=== PATIENT | male | born 1950 | race Caucasian/White ===

== ENCOUNTER 2016-12-26 17:22 | Emergency (ER) | payer OTHER ==
[~2016-12-26] VITALS: Ht 177.8 cm; Wt 91.5 kg
[~2016-12-26 17:22] MED LIST: ALBU1AER INH; ASPI81TA82 PO; ATOR40TA PO; HYDR-3533 PO; LOTR5CAP3 PO; MEDR4PAK3 PO; MONT10TA2 PO; SYMB160A INH; VITA100017 PO; ZIAC5TAB PO; ZOFR4TAB3 SL
[2016-12-26 18:03] VITALS: BP 108/55; PULSE 78; RESP 16; TEMP 98.8; O2SAT 96
== END 2016-12-26 21:25 | disposition left against medical advice (07) ==
LOC: PHED 17:22
DX: R42 Dizziness and giddiness (principal)
CPT/HCPCS: 99281

== ENCOUNTER 2016-12-30 14:06 | Inpatient (IN) | payer OTHER, MEDICARE ==
[2016-12-30] VITALS (8 sets, daily range): BP systolic 93–144; BP diastolic 61–96; PULSE 88–100; RESP 14–20; TEMP 97.8–98.6; O2SAT 96–97
[~2016-12-30] VITALS: Ht 177.8 cm; Wt 97.9 kg
[2016-12-30] MEDS ORDERED: LISI40TA PO (14:25)
[2016-12-30] MEDS ORDERED: CHLOR50 PO (14:25)
[2016-12-30] MEDS ORDERED: SYMB80AE INH (14:25)
[2016-12-30] MEDS ORDERED: MONT10TA2 PO (14:25)
[2016-12-30] MEDS ORDERED: SODIUM CHLOR 0.9% 1000 ML INJ 1,000 ML IV SCH (14:56)
[2016-12-30] MEDS ORDERED: SODIUM CHLORIDE 0.9% FLUSH 10 ML FLUSH IV FLUSH PRN ×2 (15:00→18:45)
[2016-12-30 15:21] LABS: BASOPHIL # 0.1 TH/MM3 (0-0.2); BASOPHIL % 0.7 % (0.0-2.0); EOSINOPHIL # 0.1 TH/MM3 (0-0.4); EOSINOPHIL % 1.1 % (0.0-4.0); MEAN CELL VOLUME 62.5 FL (80.0-100.0); MEAN CORPUSCULAR HEMOGLOBIN 19.9 PG (27.0-34.0); MEAN CORPUSCULAR HGB CONC 31.9 % (32.0-36.0); MONO % 7.1 % (0.0-8.0); NEUT % 81.1 % (16.0-70.0); PLATELET COUNT 254 TH/MM3 (150-450); RED BLOOD COUNT 5.45 MIL/MM3 (4.50-5.90); RED CELL DISTRIBUTION WIDTH 15.9 % (11.6-17.2); WHITE BLOOD COUNT 9.9 TH/MM3 (4.0-11.0)
[2016-12-30 15:27] LABS: CHLORIDE 92 MEQ/L (98-107); SODIUM (NA) 130 MEQ/L (136-145)
[2016-12-30 15:29] LABS: HEMO FLAGS AUTO DIFF
[2016-12-30 15:30] LABS: ANION GAP 10 MEQ/L (5-15); BICARBONATE 28.3 MEQ/L (21.0-32.0)
[2016-12-30 15:31] LABS: BLOOD UREA NITROGEN 23 MG/DL (7-18)
[2016-12-30 15:33] LABS: ALT (GPT) 88 U/L (12-78); AST (GOT) 87 U/L (15-37)
[2016-12-30 15:34] LABS: GLOMERULAR FILTRATION RATE 43 ML/MIN (>89)
[2016-12-30 15:35] LABS: TOTAL BILIRUBIN ADULT 0.4 MG/DL (0.2-1.0)
[2016-12-30 15:36] LABS: ALKALINE PHOSPHATASE 65 U/L (45-117)
[2016-12-30] MEDS ORDERED: SODIUM CHLOR 0.9% 1000 ML INJ 1,000 ML IV ONE (15:45)
--- NOTE | 2016-12-30 16:01 | RADRPT ---
EXAM DATE/TIME: 12/30/2016 15:02 [facility] COMPARISON: RIBS RIGHT(W PA CXR MIN 3VWS), June 04, 2015, 1:35. INDICATIONS : Cough. MEDICAL HISTORY : Hypertension. Asthma SURGICAL HISTORY : None. ENCOUNTER: Initial ACUITY: 1 day PAIN SCORE: 4/10 LOCATION: Bilateral chest FINDINGS: Single view chest demonstrates the cardiac and mediastinal contours to be within normal limits. There is an area of linear atelectasis at the left lung base. The osseous structures are intact. CONCLUSION: 1. Small area of atelectasis at the left lung base. Twan Brumfield MD on December 30, 2016 at 15:58 Board Certified Radiologist. This report was verified electronically.
[2016-12-30 16:07] LABS: KERATOCYTES 1+ (NORMAL); OVALOCYTES 3+ (NORMAL); TARGET CELLS 1+ (NORMAL)
[2016-12-30 16:08] LABS: SCAN/DIFF AUTO DIFF CONFIRMED; TEARDROP RBCS 1+ (NORMAL)
[2016-12-30 16:12] LABS: BLOOD, URINE NEG (NEG); GLUCOSE,URINE NEG (NEG); KETONE, URINE TRACE mg/dL (NEG); NITRITE,URINE NEG (NEG); PH, URINE 6.5 (5.0-8.5)
[2016-12-30 16:46] LABS: URINE COLOR YELLOW (YELLW/STRAW)
[2016-12-30 16:47] LABS: COMMENT (UR) CULT NOT INDICATED; CULTURE IF INDICATED CULT NOT INDICATED; MUCUS URINE MOD /lpf (OCC); RBC, URINE 0-3 /hpf (0-3); SQUAMOUS EPITHELIAL CELL URINE 0-5 /hpf (0-5)
--- NOTE | 2016-12-30 16:48 | RADRPT ---
EXAM DATE/TIME: 12/30/2016 16:36 [facility] COMPARISON: No previous studies available for comparison. INDICATIONS : Abdominal cramping, nausea and constipation x 3 days. Low blood pressure. ORAL CONTRAST: No oral contrast ingested. RADIATION DOSE: 18.46 CTDIvol (mGy) MEDICAL HISTORY : Chronic obstructive pulmonary disease. Hypertension. SURGICAL HISTORY : None. ENCOUNTER: Initial ACUITY: 3 days PAIN SCALE: 6/10 LOCATION: Diffuse abdomen. TECHNIQUE: Volumetric scanning of the abdomen and pelvis was performed. Using automated exposure control and ad justment of the mA and/or kV according to patient size, radiation dose was kept as low as reasonably achievable to obtain optimal diagnostic quality images. DICOM format image data is available electro nically for review and comparison. FINDINGS: LOWER LUNGS: The visualized lower lungs are clear. LIVER: Homogeneous density without lesion. There is no dilation of the biliary tree. No calcified gallston es. SPLEEN: Normal size without lesion. PANCREAS: Within normal limits. KIDNEYS: Normal in size and shape. There is no mass, stone, or hydronephrosis. ADRENAL GLANDS: Minimal nodularity is present about both adrenals and they 1.8 CM nodule on the right, low-density pr obably adenoma VASCULAR: Moderate vascular calcifications are noted. BOWEL/MESENTERY: The stomach, small bowel, and colon demonstrate no acute abnormality. There is no free intraperitone al air or fluid. ABDOMINAL WALL: Within normal limits. RETROPERITONEUM: There is no lymphadenopathy. BLADDER: No wall thickening or mass. REPRODUCTIVE: Previous patient therapy prostate INGUINAL: There is no lymphadenopathy or hernia. MUSCULOSKELETAL: Degenerative changes of lumbar spinal stenosis L4-5-L5-S1. CONCLUSION: Negative for an acute process Bilateral adrenal nodules larger on the right Extensive gastric calcifications I don't see an abscess. Osei Brumfield MD FACR on December 30, 2016 at 16:44 Board Certified Radiologist. This report was verified electronically.
--- NOTE | 2016-12-30 16:56 | PD ---
HPI Chief Complaint: Dizziness Time Seen by Provider: 14:23 Travel History International Travel<30 days: No Contact w/Intl Traveler<30days: No Traveled to known affect area: No History of Present Illness HPI 66-year-old male came to the emergency room for some lightheadedness, left- sided chest pain and hypotension. Patient says that he had gone to [place] as to visit his brother after which he started feeling weak. He came back couple days later amended see his primary care. It was noticed that his blood pressure was running low. Patient says that his appetite has been down and he has lost 7-8 pounds in one week. No history of shortness of breath but this chest pain is on the left lower side which is worse on taking a deep breath. He says he just feels tired all the time. No history of nausea vomiting. No radiation of the pain. Blood pressure in triage was 93/55. Patient says his blood pressure usually is in 130s and that is after taking 2 blood pressure medications. His primary care to come off one of the blood pressure medicine. This morning when he woke up he was hungry but by the time he made a to breakfast his appetite was gone. Has been he decided to come to the ER. No history of fever or chills. He has a slight cough. [facility] Past Medical History Narrative Medical History of his past medical, surgical, social and family history is reviewed from the nursing note. Asthma: Yes High Cholesterol: Yes COPD: Yes Diminished Hearing: No Hypertension: Yes Immunizations Current: No Pneumonia: Yes Influenza Vaccination: Yes ?: Not Past Surgical History Eye Surgery: Yes (RIGHT CATARACT) Tonsillectomy: Yes Family History Family Hypercholesterolemia: Yes (FATHER) Social History Alcohol Use: Yes ([facility]) Tobacco Use: No (QUIT 2007) Substance Use: No Allergies-Medications (Allergen,Severity, Reaction): Coded Allergies: penicillin G (Unverified Allergy, Severe, Anaphylaxis, 12/30/16) Comments List of his allergies are noted from the nursing note. Reported Meds & Prescriptions Reported Meds & Active Scripts Active Reported Symbicort Inh (Budesonide/Formoterol Fumarate) 80-4.5 Mcg/Act Aero 2 Puff INH DAILY@0600 Singulair (Montelukast Sodium) 10 Mg Tab 10 Mg PO HS Chlorthalidone 50 Mg Tab 50 Mg PO DAILY Lisinopril 40 Mg Tab 40 Mg PO DAILY Narrative Medication List of his home medications reviewed from the nursing note. Review of Systems Except as stated in HPI: all other systems reviewed are Neg Physical Exam Narrative GENERAL: Awake, alert, moderate distress, anxious SKIN: Focused skin assessment warm/dry. HEAD: Atraumatic. Normocephalic. EYES: Pupils equal and round. No scleral icterus. No injection or drainage. ENT: No nasal bleeding or discharge. Dry lips and mucous membranes NECK: Trachea midline. No JVD. CARDIOVASCULAR: Regular rate and rhythm. No murmur appreciated. RESPIRATORY: No accessory muscle use. Clear to auscultation. Breath sounds equal bilaterally. GASTROINTESTINAL: Abdomen soft, non-tender, nondistended. Hepatic and splenic margins not palpable. MUSCULOSKELETAL: No obvious deformities. No clubbing. No cyanosis. No edema. NEUROLOGICAL: Awake and alert. No obvious cranial nerve deficits. Motor grossly within normal limits. Normal speech. PSYCHIATRIC: Appropriate mood and affect; insight and judgment normal. Data Data Last Documented VS Vital Signs Date Time Temp Pulse Resp B/P (MAP) Pulse Ox O2 Delivery O2 Flow Rate FiO2 12/30/16 17:55 89 18 135/96 (109) 96 Room Air 12/30/16 14:07 97.8 Orders Orders Complete Blood Count With Diff (12/30/16 14:56) Comprehensive Metabolic Panel (12/30/16 14:56) Lipase (12/30/16 14:56) Urinalysis - C+S If Indicated (12/30/16 14:56) Ct Abd/Pel W/O Iv Contrast (12/30/16 14:56) Iv Access Insert/Monitor (12/30/16 14:56) Ecg Monitoring (12/30/16 14:56) Oximetry (12/30/16 14:56) Sodium Chlor 0.9% 1000 Ml Inj (Ns 1000 M (12/30/16 14:56) Sodium Chloride 0.9% Flush (Ns Flush) (12/30/16 15:00) Electrocardiogram (12/30/16 14:56) Chest, Single Ap (12/30/16 ) Sodium Chlor 0.9% 1000 Ml Inj (Ns 1000 M (12/30/16 15:45) Troponin I (12/30/16 17:00) Iron/Tibc Profile (12/30/16 17:02) Transferrin (12/30/16 17:02) Ct Pulmonary Angiogram (12/30/16 ) Iohexol 350 Inj (Omnipaque 350 Inj) (12/30/16 18:15) Admit To Inpatient (12/30/16 ) Vital Signs (Adult) Q4H (12/30/16 18:34) Activity Bed Rest With Brp (12/30/16 18:34) Sodium Chlor 0.9% 1000 Ml Inj (Ns 1000 M (12/30/16 18:34) Sodium Chloride 0.9% Flush (Ns Flush) (12/30/16 18:45) Sodium Chloride 0.9% Flush (Ns Flush) (12/30/16 21:00) Acetaminophen (Tylenol) (12/30/16 18:45) Ondansetron Inj (Zofran Inj) (12/30/16 18:45) Comprehensive Metabolic Panel (12/31/16 06:00) Complete Blood Count With Diff (12/31/16 06:00) Resp Oxygen David C Titrat 1-4 L (12/30/16 ) Naloxone Inj (Narcan Inj) (12/30/16 18:45) Admit Order (Ed Use Only) (12/30/16 18:55) Labs Laboratory Tests Test 12/30/16 15:11 12/30/16 15:55 White Blood Count 9.9 TH/MM3 Red Blood Count 5.45 MIL/MM3 Hemoglobin 10.9 GM/DL Hematocrit 34.0 % Mean Corpuscular Volume 62.5 FL Mean Corpuscular Hemoglobin 19.9 PG Mean Corpuscular Hemoglobin Concent 31.9 % Red Cell Distribution Width 15.9 % Platelet Count 254 TH/MM3 Mean Platelet Volume 8.0 FL Neutrophils (%) (Auto) 81.1 % Lymphocytes (%) (Auto) 10.0 % Monocytes (%) (Auto) 7.1 % Eosinophils (%) (Auto) 1.1 % Basophils (%) (Auto) 0.7 % Neutrophils # (Auto) 8.0 TH/MM3 Lymphocytes # (Auto) 1.0 TH/MM3 Monocytes # (Auto) 0.7 TH/MM3 Eosinophils # (Auto) 0.1 TH/MM3 Basophils # (Auto) 0.1 TH/MM3 CBC Comment AUTO DIFF Differential Comment AUTO DIFF CONFIRMED Target Cells 1+ Tear Drop Cells 1+ Ovalocytes 3+ Keratocytes 1+ Blood Urea Nitrogen 23 MG/DL Creatinine 1.60 MG/DL Random Glucose 99 MG/DL Total Protein 7.5 GM/DL Albumin 3.4 GM/DL Calcium Level 9.1 MG/DL Alkaline Phosphatase 65 U/L Aspartate Amino Transf (AST/SGOT) 87 U/L Alanine Aminotransferase (ALT/SGPT) 88 U/L Total Bilirubin 0.4 MG/DL Sodium Level 130 MEQ/L Potassium Level 4.0 MEQ/L Chloride Level 92 MEQ/L Carbon Dioxide Level 28.3 MEQ/L Anion Gap 10 MEQ/L Estimat Glomerular Filtration Rate 43 ML/MIN Iron Level 41 MCG/DL Total Iron Binding Capacity 340 MCG/DL Percent Iron Saturation 12.1 % Transferrin 243 MG/DL Troponin I LESS THAN 0.02 NG/ML Lipase 136 U/L Urine Color YELLOW Urine Turbidity CLEAR Urine pH 6.5 Urine Specific [place] 1.021 Urine Protein TRACE mg/dL Urine Glucose (UA) NEG mg/dL Urine Ketones TRACE mg/dL Urine Occult Blood NEG Urine Nitrite NEG Urine Bilirubin NEG Urine Leukocyte Esterase NEG Urine RBC 0-3 /hpf Urine WBC 3-5 /hpf Urine Squamous Epithelial Cells 0-5 /hpf Urine Amorphous Sediment FEW Urine Mucus MOD /lpf Microscopic Urinalysis Comment CULT NOT INDICATED MDM Medical Decision Making Medical Screen Exam Complete: Yes Emergency Medical Condition: Yes Medical Record Reviewed: Yes Interpretation(s) Twelve-lead EKG was reviewed by me. Normal sinus rhythm, normal axis, nonspecific ST-T wave changes, PVCs. Heart rate of 98 bpm. Differential Diagnosis Pneumonia, dehydration, electrolyte imbalance, PE, ACS, non-STEMI Narrative Course 5:52 PM blood test results are back and patient is anemic with hemolytic cells. Patient confirmed that he has history of thalassemia and he thinks it's thalassemia minor. Chemistry is suggestive of slight elevation of AST and ALTs. Troponin is negative. Initially I had ordered a CT scan of his abdomen and pelvis which was negative any acute issues. BUN/creatinine is elevated suggesting dehydration. I've given him 2 L of IV fluid bolus. I've ordered a CT pulmonary angiogram at this point to rule out PE. If that's negative patient will be admitted for rule out ACS. Also given the thalassemia and elevated LFTs I have added transferrin and serum iron level along with serum iron and TIBC ratio. My concern is iron overload. These tests will be run at the main hospital and will take a little bit time. Patient will need to be admitted for observation at least a rule out ACS. I reassessed him after the 2 L of IV fluid bolus and he says he still feels "blah". 6:[address] pulmonary angiogram report is back and patient does not have PE. Troponin was within acceptable limit. Awaiting for the hospitalist to call back for admission. Procedures EKG Prior to Arrival: No Diagnosis Primary Impression: Chest pain Qualified Codes: R07.9 - Chest pain, unspecified Additional Impressions: Thalassemia minor Dehydration Admitting Information Admitting Physician Requests: Observation Scripts Methylprednisolone Dosepak (Medrol Dosepak) 4 Mg Dspk 4 MG PO DIRECTED, #1 DSPK 0 Refills Per Pharmacist direction Prov: Shelly Patrick MD 01/01/17 Azithromycin (Azithromycin) 250 Mg Tab 500 MG PO DAILY for COPD for 3 Days, #6 TAB Prov: Shelly Patrick MD 01/01/17 Reshma Sebastian MD Dec 30, 2016 16:56
[2016-12-30] MEDS ORDERED: IOHEXOL 350 MG/ML 10 ML VIAL (for RAD DIAG) IVCONTRAST ONE (18:15)
--- NOTE | 2016-12-30 18:22 | RADRPT ---
EXAM DATE/TIME: 12/30/2016 18:06 [facility] COMPARISON: CT ABDOMEN & PELVIS W/O CONTRAST, December 30, 2016, 16:36. INDICATIONS : Left chest pain, hypotension, lightheaded and cough. IV CONTRAST: 75 cc Omnipaque 350 (iohexol) IV RADIATION DOSE: 18.45 CTDIvol (mGy) MEDICAL HISTORY : Hypertension. Chronic obstructive pulmonary disease. SURGICAL HISTORY : None. ENCOUNTER: Initial ACUITY: 3 days PAIN SCALE: 4/10 LOCATION: Left chest TECHNIQUE: Volumetric scanning of the chest was performed using a pulmonary embolism protocol MIP images were re constructed. Using automated exposure control and adjustment of the mA and/or kV according to patien t size, radiation dose was kept as low as reasonably achievable to obtain optimal diagnostic quality images. DICOM format image data is available electronically for review and comparison. Follow-up recommendations for detected pulmonary nodules are based at a minimum on nodule size and pa tient risk factors according to Fleischner Society Guidelines. FINDINGS: The examination is of good diagnostic quality. No pulmonary embolus is identified. The heart is normal in size. There is no pericardial effusion. There is mild atherosclerotic plaquing of the coronary arteries. The pulmonary parenchyma demonstrates mild COPD changes but is otherwise clear. No pleural effusion i s present. The limited portions of upper abdomen visualized demonstrate small bilateral adrenal masses. The lesi on on the right measures 1.8 cm. This measures only 3 Hounsfield units on the prior noncontrast imagi ng and would be consistent with benign adenoma. The lesion on the left measures -10 Hounsfield units which is consistent with benign adenoma as well. CONCLUSION: 1. No pulmonary embolus identified. 2. Bilateral benign adrenal adenomas. 3. Mild COPD changes. Twan Brumfield MD on December 30, 2016 at 18:19 Board Certified Radiologist. This report was verified electronically.
[2016-12-30] MEDS ORDERED: ONDANSETRON HCL 4 MG/2 ML VIAL IVP PRN (18:45)
[2016-12-30] MEDS ORDERED: NALOXONE HCL 0.4 MG/ML AMP IV PUSH PRN (18:45)
[2016-12-30] MEDS: SODIUM CHLOR 0.9% 1000 ML INJ 1,000 ML IV SCH (18:48)
[2016-12-30 18:54] LABS: TRANSFERRIN 243 MG/DL (200-360); TRANSFERRIN IRON PROFILE 243 MG/DL (200-360)
[2016-12-30] MEDS: SODIUM CHLORIDE 0.9% FLUSH 10 ML FLUSH IV FLUSH SCH (21:58)
[2016-12-30] MEDS: ACETAMINOPHEN 325 MG TAB PO PRN (22:01)
[2016-12-31] VITALS (11 sets, daily range): BP systolic 124–159; BP diastolic 69–104; PULSE 70–102; RESP 15–22; TEMP 96.4–98.9; O2SAT 94–99
[2016-12-31] MEDS: ACETAMINOPHEN 325 MG TAB PO PRN (03:46)
[2016-12-31] MEDS: SODIUM CHLOR 0.9% 1000 ML INJ 1,000 ML IV SCH ×2 (04:34→05:17)
--- NOTE | 2016-12-31 06:08 | EKG ---
Date Performed: 12/30/2016 Time Performed: 15:05:31 PTAGE: 66 years EKG: Sinus rhythm WITH OCCASIONAL SUPRAVENTRICULAR PREMATURE COMPLEXES BORDERLINE ECG NO PREVIOUS TRACING DOCTOR: Kayden Ashley Interpretating Date/Time 12/31/2016 06:05:59
[2016-12-31 07:15] LABS: CHLORIDE 99 MEQ/L (98-107); POTASSIUM 3.7 MEQ/L (3.5-5.1); SODIUM (NA) 135 MEQ/L (136-145)
[2016-12-31 07:19] LABS: ANION GAP 9 MEQ/L (5-15); BICARBONATE 26.9 MEQ/L (21.0-32.0); BLOOD UREA NITROGEN 16 MG/DL (7-18)
[2016-12-31 07:22] LABS: ALT (GPT) 104 U/L (12-78); AST (GOT) 89 U/L (15-37); GLOMERULAR FILTRATION RATE 80 ML/MIN (>89)
[2016-12-31 07:24] LABS: ALKALINE PHOSPHATASE 65 U/L (45-117); TOTAL BILIRUBIN ADULT 0.5 MG/DL (0.2-1.0)
[2016-12-31 07:25] LABS: AUTOMATED NEUTROPHIL # 11.6 TH/MM3 (1.8-7.7); BASOPHIL % 0.2 % (0.0-2.0); EOSINOPHIL # 0.1 TH/MM3 (0-0.4); EOSINOPHIL % 0.9 % (0.0-4.0); HEMATOCRIT 34.2 % (39.0-51.0); LYMPH % 7.2 % (9.0-44.0); MEAN CELL VOLUME 63.9 FL (80.0-100.0); MEAN CORPUSCULAR HEMOGLOBIN 19.9 PG (27.0-34.0); MEAN CORPUSCULAR HGB CONC 31.1 % (32.0-36.0); MONO % 7.3 % (0.0-8.0); NEUT % 84.4 % (16.0-70.0); PLATELET COUNT 227 TH/MM3 (150-450); RED BLOOD COUNT 5.35 MIL/MM3 (4.50-5.90); RED CELL DISTRIBUTION WIDTH 16.5 % (11.6-17.2); WHITE BLOOD COUNT 13.7 TH/MM3 (4.0-11.0)
[2016-12-31 07:26] LABS: HEMO FLAGS AUTO DIFF
[2016-12-31 08:03] LABS: SCAN/DIFF AUTO DIFF CONFIRMED
[2016-12-31] MEDS ORDERED: guaiFENesin/DEXTROMETHORPHAN 200 MG/20 MG/10 ML CUP PO PRN (08:15)
[2016-12-31] MEDS ORDERED: PNEUMOCOCCAL POLYVALENT INJ 25 MCG/0.5 ML SYR IM ONE (09:00)
[2016-12-31] MEDS: SODIUM CHLORIDE 0.9% FLUSH 10 ML FLUSH IV FLUSH SCH ×2 (09:00→22:00)
--- NOTE | 2016-12-31 09:05 | EKG ---
Date Performed: 12/31/2016 Time Performed: 08:34:47 PTAGE: 66 years EKG: Baseline artifact present Sinus rhythm NORMAL ECG Compared to prior electrocardiogram, PACs no longer present. PREVIOUS TRACING : 12/30/2016 15.05 DOCTOR: Kayden Ashley Interpretating Date/Time 12/31/2016 09:03:56
[2016-12-31 10:03] LABS: CREATINE KINASE 64 U/L (39-308)
[2016-12-31] MEDS ORDERED: methylPREDNISolone SOD SUCC 125 MG/2 ML VIAL IV PUSH ONE (14:30)
[2016-12-31] MEDS ORDERED: RESP: ALBUTEROL 2.5 MG/IPRATROPIUM 0.5 MG NEB (PRN) NEB (14:30)
[2016-12-31] MEDS: RESP: ALBUTEROL 2.5 MG/IPRATROPIUM 0.5 MG NEB (SCH) NEB ×3 (15:33→23:17)
[2016-12-31] MEDS: guaiFENesin/CODEINE SYRUP 200 MG/20 MG/10 ML CUP PO PRN (16:03)
[2016-12-31] MEDS: AZITHROMYCIN 250 MG TAB PO SCH (16:03)
--- NOTE | 2016-12-31 16:53 | HHI.HP ---
HPI Service [facility] Hospitalists Primary Care Physician Dieudonne Ramos, DO Admission Diagnosis chest pain, thalassemia minor, dehydration Diagnoses: (1) Leukocytosis Diagnosis: Principal (2) Bronchitis Diagnosis: Principal (3) COPD (chronic obstructive pulmonary disease) Diagnosis: Principal (4) Shortness of breath Diagnosis: Principal (5) Hyponatremia Diagnosis: Principal Chief Complaint: Cough, shortness of breath Travel History International Travel<30 Days: No Contact w/Intl Traveler <30 Da: No Traveled to Known Affected Are: No Sepsis Criteria SIRS Criteria (2 or more): Heart rate over 90, WBC > 85258, < 4000 or > 10% bands Sepsis Criteria (SIRS+source): Infect source susp/known History of Present Illness Written by Gary Sheldon, acting as scribe for Dr. Patrick on 12/31/16 at 16 :43. 66-year-old male with known history of hypertension, chronic obstructive pulmonary disease, hyperlipidemia, recurrent bronchitis, thalassemia who presented to hospital because of being ill for the last week. Patient states that when he got back from [place], he started having worsening symptoms, not feeling well well, nausea with no vomiting, 9 pound weight loss, significant cough with minimal production, chest congestion, rib pain from the coughing. Because he did not get any better he came to emergency department for evaluation. Patient states that he gets this illness frequently and he usually gets prescribed an antibiotic, steroid pack and he gets better. He does have a nebulizer at home however he does not use it that frequently. Patient was admitted for further evaluation. Patient did have cardiac enzymes performed which did rule out any acute coronary event. Patient still with significant chest congestion, wheezing, cough. Cough medicine that was prescribed is not working that well at this time. Patient denies any fever, chills, abdominal pain, vomiting, patient does have some nausea, however he was able to eat some toast this morning. Review of Systems Constitutional: COMPLAINS OF: Weight loss Respiratory: COMPLAINS OF: Cough, Shortness of breath Gastrointestinal: COMPLAINS OF: Nausea Except as stated in HPI: all other systems reviewed are Neg Past Family Social History Past Medical History Hypertension Hyperlipidemia Chronic obstructive pulmonary disease Thalassemia Recurrent bronchitis Past Surgical History Cataract surgery Tonsillectomy Reported Medications Reported Meds & Active Scripts Active Reported Symbicort Inh (Budesonide/Formoterol Fumarate) 80-4.5 Mcg/Act Aero 2 Puff INH DAILY@0600 Singulair (Montelukast Sodium) 10 Mg Tab 10 Mg PO HS Chlorthalidone 50 Mg Tab 50 Mg PO DAILY Lisinopril 40 Mg Tab 40 Mg PO DAILY Allergies: Coded Allergies: penicillin G (Unverified Allergy, Severe, Anaphylaxis, 12/30/16) Family History Father at 87 from prostate cancer and coronary artery disease, mother at age 87 with diabetes Social History Patient quit smoking 4 years ago, prior to that he smoked one pack a cigarettes a day since he was a teenager. Does drink 2 beers daily. Denies any illicit drugs Physical Exam Vital Signs Vital Signs Date Time Temp Pulse Resp B/P (MAP) Pulse Ox O2 Delivery O2 Flow Rate FiO2 12/31/16 15:36 97 21 12/31/16 13:31 96.5 88 15 147/86 (106) 98 12/31/16 08:30 96.4 70 16 133/70 (91) 99 12/31/16 08:00 97 12/31/16 05:15 98.6 76 20 134/72 (92) 95 12/31/16 04:07 97 21 12/31/16 01:45 97.6 73 20 129/78 (95) 95 12/30/16 22:25 88 12/30/16 21:30 99 12/30/16 19:26 98.3 89 20 144/81 (102) 96 Room Air 12/30/16 17:55 89 18 135/96 (109) 96 Room Air Physical Exam GENERAL: Well-developed, well-nourished, in no acute distress. alert and orientated HEENT: Head is normocephalic without any lesions or masses noted. Facial features are symmetric. Eyes: Pupils equal round reactive to light. Extraocular muscles are intact. Conjunctivae were clear. Oropharyngeal: Pharynx without any erythema edema. Tongue is midline without deviation. Buccal mucosa is moist without any masses or lesions NECK: Supple without any masses. Trachea midline no deviation. No JVD, no bruits are appreciated CARDIAC: Regular rhythm, regular rate. S1/S2 are heard. No murmurs gallops or rubs. LUNGS: Wheeze noted bilaterally. No rhonchi or rales. No use of accessory muscles on inspiration or expiration. Palpable tenderness that noted along the lower rib cage ABDOMEN: Soft, nontender. Nondistended. Bowel sounds heard in all 4 quadrants. No organomegaly or masses. Negative rebound, negative guarding EXTREMITIES: No edema, pulses are equal bilaterally. No cyanosis or clubbing NEUROLOGY: Mood and affect appear appropriate. Cranial nerves II through XII grossly intact. Muscle strength 5/5 in upper and lower extremities bilaterally. Deep tendon reflexes are 2+ in upper and lower extremities bilaterally. Laboratory Laboratory Tests Test 12/31/16 05:59 12/31/16 08:28 White Blood Count 13.7 Red Blood Count 5.35 Hemoglobin 10.6 Hematocrit 34.2 Mean Corpuscular Volume 63.9 Mean Corpuscular Hemoglobin 19.9 Mean Corpuscular Hemoglobin Concent 31.1 Red Cell Distribution Width 16.5 Platelet Count 227 Mean Platelet Volume 8.3 Neutrophils (%) (Auto) 84.4 Lymphocytes (%) (Auto) 7.2 Monocytes (%) (Auto) 7.3 Eosinophils (%) (Auto) 0.9 Basophils (%) (Auto) 0.2 Neutrophils # (Auto) 11.6 Lymphocytes # (Auto) 1.0 Monocytes # (Auto) 1.0 Eosinophils # (Auto) 0.1 Basophils # (Auto) 0.0 CBC Comment AUTO DIFF Differential Comment AUTO DIFF CONFIRMED Blood Urea Nitrogen 16 Creatinine 0.94 Random Glucose 93 Total Protein 7.0 Albumin 3.2 Calcium Level 8.5 Alkaline Phosphatase 65 Aspartate Amino Transf (AST/SGOT) 89 Alanine Aminotransferase (ALT/SGPT) 104 Total Bilirubin 0.5 Sodium Level 135 Potassium Level 3.7 Chloride Level 99 Carbon Dioxide Level 26.9 Anion Gap 9 Estimat Glomerular Filtration Rate 80 Total Creatine Kinase 64 Troponin I LESS THAN 0.02 Result Diagram: 12/31/16 0559 12/31/16 0559 Imaging Last Impressions Abdomen/Pelvis CT 12/30/16 1456 Signed Impressions: Service Date/Time: Friday, December 30, 2016 16:36 - CONCLUSION: Negative for an acute process Bilateral adrenal nodules larger on the right Extensive gastric calcifications I don't see an abscess. Osei Brumfield MD FACR Chest X-Ray 12/30/16 0000 Signed Impressions: Service Date/Time: Friday, December 30, 2016 15:02 - CONCLUSION: 1. Small area of atelectasis at the left lung base. Twan Brumfield MD CT Angiography 12/30/16 0000 Signed Impressions: Service Date/Time: Friday, December 30, 2016 18:06 - CONCLUSION: 1. No pulmonary embolus identified. 2. Bilateral benign adrenal adenomas. 3. Mild COPD changes. Twan Brumfield MD Septic Shock Reassessment Heart: Regular rate and rhythm Lungs: Other (wheeze noted throughout) Skin: Warm, Moist Peripheral Pulses: Bounding Right Radial Bounding Left Radial Capillary Refill: Brisk, <2 seconds Caprini VTE Risk Assessment Caprini VTE Risk Assessment: Mod/High Risk (score >= 2) Caprini Risk Assessment Model Point Value = 1 Point Value = 2 Point Value = 3 Point Value = 5 Age 41-60 Minor surgery BMI > 25 kg/m2 Swollen legs Varicose veins or History of unexplained or recurrent spontaneous Oral contraceptives or hormone replacement Sepsis (< 1 month) Serious lung disease, including pneumonia (< 1 month) Abnormal pulmonary function Acute myocardial infarction Congestive heart failure (< 1 month) History of inflammatory bowel disease Medical patient at bed rest Age 61-74 Arthroscopic surgery Major open surgery (> 45 min) Laparoscopic surgery (> 45 min) Malignancy Confined to bed (> 72 hours) Immobilizing plaster cast Central venous access Age >= 75 History of VTE Family history of VTE Factor V Leiden Prothrombin [id number] Lupus anticoagulant Anticardiolipin antibodies Elevated serum homocysteine Heparin-induced thrombocytopenia Other congenital or acquired thrombophilia Stroke (< 1 month) Elective arthroplasty Hip, pelvis, or leg fracture Acute spinal cord injury (< 1 month) Prophylaxis Regimen Total Risk Factor Score Risk Level Prophylaxis Regimen 0-1 Low Early ambulation 2 Moderate Order ONE of the following: *Sequential Compression Device (SCD) *Heparin 5000 units SQ BID 3-4 Higher Order ONE of the following medications: *Heparin 5000 units SQ TID *Enoxaparin/Lovenox 40 mg SQ daily (WT < 150 kg, CrCl > 30 mL/min) *Enoxaparin/Lovenox 30 mg SQ daily (WT < 150 kg, CrCl > 10-29 mL/min) *Enoxaparin/Lovenox 30 mg SQ BID (WT < 150 kg, CrCl > 30 mL/min) AND/OR *Sequential Compression Device (SCD) 5 or more Highest Order ONE of the following medications: *Heparin 5000 units SQ TID (Preferred with Epidurals) *Enoxaparin/Lovenox 40 mg SQ daily (WT < 150 kg, CrCl > 30 mL/min) *Enoxaparin/Lovenox 30 mg SQ daily (WT < 150 kg, CrCl > 10-29 mL/min) *Enoxaparin/Lovenox 30 mg SQ BID (WT < 150 kg, CrCl > 30 mL/min) AND *Sequential Compression Device (SCD) Assessment and Plan Assessment and Plan Chronic obstructive pulmonary disease with possible underlying exacerbation O2 supplementation maintain O2 sats greater than 92% Continue antibiotics Start Solu-Medrol 40 mg every 6 hours Start nebulizer treatments Start incentive spirometry Hypertension Continue home medications DVT prevention Subcutaneous Lovenox Discussed Condition With This note was transcribed by [email or web address]. I, Dr. Shelly Patrick personally performed the history, physical exam, and medical decision making; and confirmed the accuracy of the information in the transcribed note and made amendments where indicated. Authenticated by Dr. Shelly Patrick on 12/31/16 at 17:04. Physician Certification 2 Midnight Certification Type: Admission for Inpatient Services Order for Inpatient Services The services are ordered in accordance with Medicare regulations or non- Medicare payer requirements, as applicable. In the case of services not specified as inpatient-only, they are appropriately provided as inpatient services in accordance with the 2-midnight benchmark. Estimated LOS (days): 2 days is the estimated time the patient will need to remain in the hospital, assuming treatment plan goals are met and no additional complications. Post-Hospital Plan: Not yet determined Problem Qualifiers (1) COPD (chronic obstructive pulmonary disease): Qualified Codes: J44.1 - Chronic obstructive pulmonary disease with (acute) exacerbation Gary Sheldon Dec 31, 2016 16:53 Shelly Patrick MD Dec 31, 2016 17:05
[2016-12-31] MEDS ORDERED: ENOXAPARIN SODIUM 40 MG/0.4 ML SYRINGE SQ SCH (18:00)
[2016-12-31] MEDS ORDERED: LEVOFLOXACIN 750 MG PREMIX INJ 150 ML IV SCH (18:00)
[2016-12-31] MEDS: methylPREDNISolone SOD SUCC 40 MG/1 ML VIAL IV PUSH SCH (22:00)
[2017-01-01 00:01] VITALS: BP 120/66; PULSE 92; RESP 18; TEMP 98.8; O2SAT 94
[2017-01-01] MEDS: methylPREDNISolone SOD SUCC 40 MG/1 ML VIAL IV PUSH SCH ×2 (02:50→09:54)
[2017-01-01] MEDS: guaiFENesin/CODEINE SYRUP 200 MG/20 MG/10 ML CUP PO PRN ×2 (02:50→09:52)
[2017-01-01] MEDS: SODIUM CHLOR 0.9% 1000 ML INJ 1,000 ML IV SCH ×2 (02:57→10:34)
[2017-01-01] MEDS: RESP: ALBUTEROL 2.5 MG/IPRATROPIUM 0.5 MG NEB (SCH) NEB ×3 (03:45→11:24)
[2017-01-01 04:20] VITALS: BP 131/69; PULSE 101; RESP 18; TEMP 98; O2SAT 97
[2017-01-01 04:38] VITALS: RESP 20
[2017-01-01] MEDS ORDERED: BUDESONIDE-FORMOTEROL 80/4.5 MCG INHALER INH SCH (06:00)
[2017-01-01 07:38] VITALS: O2SAT 99
[2017-01-01] MEDS ORDERED: LISINOPRIL 20 MG TAB PO SCH (09:00)
[2017-01-01] MEDS ORDERED: CHLORTHALIDONE 50 MG TAB PO SCH (09:00)
[2017-01-01 09:34] VITALS: BP 178/94; PULSE 105; RESP 16; TEMP 97.7; O2SAT 98
[2017-01-01] MEDS: AZITHROMYCIN 250 MG TAB PO SCH (09:52)
[2017-01-01] MEDS: SODIUM CHLORIDE 0.9% FLUSH 10 ML FLUSH IV FLUSH SCH (09:52)
[2017-01-01] MEDS: ACETAMINOPHEN 325 MG TAB PO PRN (11:57)
[2017-01-01] MEDS ORDERED: AZIT250T3 PO (12:33)
[2017-01-01] MEDS ORDERED: MEDR4PAK PO (12:33)
--- NOTE | 2017-01-01 12:35 | HHI.PR ---
Subjective Remarks Patient feels much improved today. No wheezing. He would like to go home. Objective Vitals Vital Signs Date Time Temp Pulse Resp B/P (MAP) Pulse Ox O2 Delivery O2 Flow Rate FiO2 01/01/17 09:34 97.7 105 16 178/94 (122) 98 01/01/17 07:38 99 21 01/01/17 04:38 20 01/01/17 04:20 98.0 101 18 131/69 (89) 97 01/01/17 00:01 98.8 92 18 120/66 (84) 94 12/31/16 20:27 98.9 90 22 124/69 (87) 94 12/31/16 20:10 102 12/31/16 19:41 95 21 12/31/16 17:31 96.6 94 16 159/104 (122) 96 12/31/16 15:36 97 21 12/31/16 13:31 96.5 88 15 147/86 (106) 98 I/O 12/31/16 12/31/16 12/31/16 01/01/17 01/01/17 01/01/17 07:00 15:00 23:00 07:00 15:00 23:00 Intake Total 1886 ml 800 ml 651 ml Balance 1886 ml 800 ml 651 ml Intake Oral 800 ml IV Total 1886 ml 651 ml # Voids 2 4 3 # Bowel Movements 1 Result Diagram: 12/31/16 0559 12/31/16 0559 Objective Remarks GENERAL: Well-nourished, well-developed patient. SKIN: Warm and dry. HEAD: Normocephalic. EYES: No scleral icterus. No injection or drainage. NECK: Supple, trachea midline. No JVD or lymphadenopathy. CARDIOVASCULAR: Regular rate and rhythm without murmurs, gallops, or rubs. RESPIRATORY: Breath sounds equal bilaterally and clear to auscultation. No accessory muscle use. GASTROINTESTINAL: Abdomen soft, non-tender, nondistended. EXTREMITIES: No cyanosis, or edema. NEUROLOGICAL: Awake, alert, and oriented x 3. Non-focal. A/P Problem List: (1) Leukocytosis ICD Code: D72.829 - Elevated white blood cell count, unspecified (2) Bronchitis ICD Code: J40 - Bronchitis, not specified as acute or chronic (3) COPD (chronic obstructive pulmonary disease) ICD Code: J44.9 - COPD (chronic obstructive pulmonary disease) Status: Acute (4) Shortness of breath ICD Code: R06.02 - Shortness of breath Status: Acute (5) Hyponatremia ICD Code: E87.1 - Hypo-osmolality and hyponatremia Assessment and Plan Chronic obstructive pulmonary disease with exacerbation, much improved. Stable on room air. Discharge home today with Medrol Dosepak, Zithromax. Patient has bronchodilators at home. Follow-up with primary care physician in one week. Hypertension Continue home medications Problem Qualifiers (1) COPD (chronic obstructive pulmonary disease): Qualified Codes: J44.1 - Chronic obstructive pulmonary disease with (acute) exacerbation Shelly Patrick MD Jan 01, 2017 12:35
[2017-01-01 13:55] VITALS: RESP 18
== END 2017-01-01 14:20 | disposition home or self-care (01) | DRG 191 ==
LOC: PHED 14:06 → PHEDA 18:56 → PH3A 21:29
PROVIDERS: ADMIT Family Medicine; ATTEND Family Medicine
DX: J44.1 Chronic obstructive pulmonary disease with (acute) exacerbation (principal); E87.1 Hypo-osmolality and hyponatremia; I10 Essential (primary) hypertension; E86.0 Dehydration; D56.3 Thalassemia minor; Z87.891 Personal history of nicotine dependence; E78.00 Pure hypercholesterolemia, unspecified; Z23 Encounter for immunization; Z80.42 Family history of malignant neoplasm of prostate; Z83.3 Family history of diabetes mellitus; Z82.49 Family history of ischemic heart disease and other diseases of the circulatory system
CPT/HCPCS: 71010; 71275; 74176; 80053; 81001; 82550; 83540; 83550; 83690; 84466; 84484; 85025; 90732; 93005; 94640; 94664; 96360; 96361; J1650; J1956; J2920; J2930; J7030; Q9967

== ENCOUNTER 2017-01-11 11:36 | Observation (INO) | payer MEDICARE, OTHER ==
[~2017-01-11] VITALS: Ht 177.8 cm; Wt 88.1 kg
[~2017-01-11 11:36] MED LIST changes: -ALBU1AER INH; -ASPI81TA82 PO; -ATOR40TA PO; +AZIT250T3 PO; +CHLOR50 PO; -HYDR-3533 PO; +LISI40TA PO; -LOTR5CAP3 PO; +MEDR4PAK PO; -MEDR4PAK3 PO; -SYMB160A INH; +SYMB80AE INH; -VITA100017 PO; -ZIAC5TAB PO; -ZOFR4TAB3 SL
[2017-01-11 11:42] VITALS: BP 122/62; PULSE 81; RESP 15; TEMP 97.8; O2SAT 98
[2017-01-11 11:52] LABS: BLOOD, URINE NEG (NEG); GLUCOSE,URINE NEG (NEG); KETONE, URINE NEG (NEG); NITRITE,URINE NEG (NEG)
[2017-01-11] MEDS ORDERED: SODIUM CHLOR 0.9% 1000 ML INJ 1,000 ML IV SCH (11:59)
[2017-01-11] MEDS ORDERED: KETOROLAC TROMETHAMINE 30 MG/ML (IVP) VIAL IVP ONE (12:00)
[2017-01-11] MEDS ORDERED: SODIUM CHLORIDE 0.9% FLUSH 10 ML FLUSH IV FLUSH PRN ×2 (12:00→14:15)
[2017-01-11 12:01] LABS: METHOD OF COLLECTION CLEAN CATCH; URINE COLOR YELLOW (YELLW/STRAW)
[2017-01-11 12:02] LABS: COMMENT (UR) CULT NOT INDICATED; CULTURE IF INDICATED CULT NOT INDICATED; RBC, URINE 0-3 /hpf (0-3); SQUAMOUS EPITHELIAL CELL URINE 0-5 /hpf (0-5)
--- NOTE | 2017-01-11 12:07 | PD ---
HPI Chief Complaint: Complaint Time Seen by Provider: 11:59 Travel History International Travel<30 days: No Contact w/Intl Traveler<30days: No Traveled to known affect area: No History of Present Illness HPI Patient is a 66-year-old male who presents to emergency room complains of intermittent right-sided flank pain. Reports that he notices symptoms 3 days ago, reports that he has also had urinary urgency and frequency with hesitancy. Denies any hematuria or dysuria. Patient denies any fevers or chills, patient with no abdominal pain at this time. Denies any history of kidney stones in the past. Patient reports that he does have an appointment with his urologist at 1:45pm today with Dr. English as he is currently being worked up for increased urination at nighttime. Patient denies history of BPH, denies any penile discharge at this time. PFSH Past Medical History Asthma: Yes Cancer: No Cardiovascular Problems: Yes High Cholesterol: Yes COPD: Yes Diminished Hearing: No Endocrine: No Genitourinary: No Hypertension: Yes Immune Disorder: No Musculoskeletal: No Neurologic: No Psychiatric: No Reproductive: No Respiratory: Yes Immunizations Current: No Pneumonia: Yes Past Surgical History Eye Surgery: Yes (RIGHT CATARACT) Tonsillectomy: Yes Family History Family Hypercholesterolemia: Yes (FATHER) Social History Alcohol Use: Yes (occ) Tobacco Use: No (QUIT 2007) Substance Use: No Allergies-Medications (Allergen,Severity, Reaction): Coded Allergies: penicillin G (Unverified Allergy, Severe, Anaphylaxis, 01/11/17) Reported Meds & Prescriptions Reported Meds & Active Scripts Active Reported Symbicort Inh (Budesonide/Formoterol Fumarate) 80-4.5 Mcg/Act Aero 2 Puff INH DAILY@0600 Singulair (Montelukast Sodium) 10 Mg Tab 10 Mg PO HS Chlorthalidone 50 Mg Tab 50 Mg PO DAILY Lisinopril 40 Mg Tab 40 Mg PO DAILY Review of Systems General / Constitutional: No: Fever Eyes: No: Visual changes HENT: No: Headaches Cardiovascular: No: Chest Pain or Discomfort Respiratory: No: Shortness of Breath Gastrointestinal: No: Abdominal Pain Genitourinary: Positive: Urgency, Frequency, Flank Pain, No: Dysuria, Hematuria Musculoskeletal: No: Pain Skin: No Rash Neurologic: No: Weakness Psychiatric: No: Depression Endocrine: No: Polydipsia Hematologic/Lymphatic: No: Easy Bruising Physical Exam Narrative GENERAL: Mild distress SKIN: Focused skin assessment warm/dry. HEAD: Atraumatic. Normocephalic. EYES: Pupils equal and round. No scleral icterus. No injection or drainage. ENT: No nasal bleeding or discharge. Mucous membranes pink and moist. NECK: Trachea midline. No JVD. CARDIOVASCULAR: Regular rate and rhythm. No murmur appreciated. RESPIRATORY: No accessory muscle use. Clear to auscultation. Breath sounds equal bilaterally. GASTROINTESTINAL: Abdomen soft, non-tender, nondistended. Hepatic and splenic margins not palpable. MUSCULOSKELETAL: No obvious deformities. No clubbing. No cyanosis. No edema. Patient with right-sided flank pain NEUROLOGICAL: Awake and alert. No obvious cranial nerve deficits. Motor grossly within normal limits. Normal speech. PSYCHIATRIC: Appropriate mood and affect; insight and judgment normal. Data Data Last Documented VS Vital Signs Date Time Temp Pulse Resp B/P (MAP) Pulse Ox O2 Delivery O2 Flow Rate FiO2 01/11/17 13:20 72 18 105/62 (76) 99 Room Air 01/11/17 11:42 97.8 Orders Orders Bladder Scan PRN (01/11/17 11:45) Urinalysis - C+S If Indicated (01/11/17 11:45) Basic Metabolic Panel (Bmp) (01/11/17 11:59) Complete Blood Count With Diff (01/11/17 11:59) Ct Abd/Pel W/O Iv Contrast (01/11/17 11:59) Sodium Chlor 0.9% 1000 Ml Inj (Ns 1000 M (01/11/17 11:59) Sodium Chloride 0.9% Flush (Ns Flush) (01/11/17 12:00) Ketorolac Inj (Toradol Inj) (01/11/17 12:00) Gc And Chlamydia Pcr (01/11/17 12:03) Labs Laboratory Tests Test 01/11/17 11:50 01/11/17 12:00 Urine Collection Type CLEAN CATCH Urine Color YELLOW Urine Turbidity CLEAR Urine pH 6.0 Urine Specific [place] 1.016 Urine Protein NEG mg/dL Urine Glucose (UA) NEG mg/dL Urine Ketones NEG mg/dL Urine Occult Blood NEG Urine Nitrite NEG Urine Bilirubin NEG Urine Leukocyte Esterase NEG Urine RBC 0-3 /hpf Urine Squamous Epithelial Cells 0-5 /hpf Microscopic Urinalysis Comment CULT NOT INDICATED Urine Collection Time 11:50 White Blood Count 12.0 TH/MM3 Red Blood Count 5.31 MIL/MM3 Hemoglobin 10.6 GM/DL Hematocrit 32.9 % Mean Corpuscular Volume 61.9 FL Mean Corpuscular Hemoglobin 19.9 PG Mean Corpuscular Hemoglobin Concent 32.2 % Red Cell Distribution Width 15.9 % Platelet Count 265 TH/MM3 Mean Platelet Volume 8.8 FL Neutrophils (%) (Auto) 83.9 % Lymphocytes (%) (Auto) 8.6 % Monocytes (%) (Auto) 5.9 % Eosinophils (%) (Auto) 1.0 % Basophils (%) (Auto) 0.6 % Neutrophils # (Auto) 10.1 TH/MM3 Lymphocytes # (Auto) 1.0 TH/MM3 Monocytes # (Auto) 0.7 TH/MM3 Eosinophils # (Auto) 0.1 TH/MM3 Basophils # (Auto) 0.1 TH/MM3 CBC Comment DIFF FINAL Differential Comment Tear Drop Cells 1+ Ovalocytes 2+ Acanthocytes 1+ Keratocytes 1+ Blood Urea Nitrogen 26 MG/DL Creatinine 1.20 MG/DL Random Glucose 93 MG/DL Calcium Level 9.1 MG/DL Sodium Level 123 MEQ/L Potassium Level 4.3 MEQ/L Chloride Level 86 MEQ/L Carbon Dioxide Level 27.6 MEQ/L Anion Gap 9 MEQ/L Estimat Glomerular Filtration Rate 61 ML/MIN [facility] Medical Decision Making Medical Screen Exam Complete: Yes Emergency Medical Condition: Yes Medical Record Reviewed: Yes Interpretation(s) Vital Signs Date Time Temp Pulse Resp B/P (MAP) Pulse Ox O2 Delivery O2 Flow Rate FiO2 01/11/17 11:42 97.8 81 15 122/62 (82) 98 Differential Diagnosis Differential includes UTI, pyelonephritis, kidney stone, urethritis, BPH, acute urinary retention Narrative Course 66-year-old male who presents to emergency room with complaints of right-sided flank pain which is been intermittent in nature for the past 3 days. Patient reports that he has had urinary urgency, frequency and hesitancy with no dysuria , or hematuria. he reports that he is concerned as he feels as if he cannot fully empty his bladder. Bladder scan after he voided was 0 - it does not appear that the patient is having acute urinary retention at this time. UA ordered. CBC, BMP, ct of abdomen and pelvis ordered for further evaluation of symptoms CBC & BMP Diagram 01/11/17 12:00 Calcium Level 9.1 Patient's sodium is 123, patient reports that he was diagnosed with dehydration last week, reports that he has been drinking water excessively, this could be the reason for his hyponatremia. Patient will require observation at this time for hyponatremia Case reviewed with Dr. Joseph who accepts pt to service Diagnosis Primary Impression: Hyponatremia Additional Impression: Flank pain Admitting Information Admitting Physician Requests: Observation Sarai Ruth DO Jan 11, 2017 12:07
[2017-01-11 12:15] LABS: AUTOMATED NEUTROPHIL # 10.1 TH/MM3 (1.8-7.7); BASOPHIL # 0.1 TH/MM3 (0-0.2); BASOPHIL % 0.6 % (0.0-2.0); EOSINOPHIL # 0.1 TH/MM3 (0-0.4); HEMATOCRIT 32.9 % (39.0-51.0); LYMPH % 8.6 % (9.0-44.0); MEAN CELL VOLUME 61.9 FL (80.0-100.0); MEAN CORPUSCULAR HEMOGLOBIN 19.9 PG (27.0-34.0); MEAN CORPUSCULAR HGB CONC 32.2 % (32.0-36.0); MONO % 5.9 % (0.0-8.0); NEUT % 83.9 % (16.0-70.0); PLATELET COUNT 265 TH/MM3 (150-450); RED BLOOD COUNT 5.31 MIL/MM3 (4.50-5.90); RED CELL DISTRIBUTION WIDTH 15.9 % (11.6-17.2)
[2017-01-11 12:16] LABS: HEMO FLAGS DIFF FINAL
[2017-01-11 12:36] LABS: BICARBONATE 27.6 MEQ/L (21.0-32.0); POTASSIUM 4.3 MEQ/L (3.5-5.1)
[2017-01-11 12:47] LABS: KERATOCYTES 1+ (NORMAL); OVALOCYTES 2+ (NORMAL)
[2017-01-11 12:48] LABS: ACANTHOCYTES 1+ (NORMAL); TEARDROP RBCS 1+ (NORMAL)
--- NOTE | 2017-01-11 13:18 | RADRPT ---
EXAM DATE/TIME: 01/11/2017 12:11 [facility] COMPARISON: CT ABDOMEN & PELVIS W/O CONTRAST, December 30, 2016, 16:36. INDICATIONS : Right flank pain. Low back pain. ORAL CONTRAST: No oral contrast ingested. RADIATION DOSE: 20.11 CTDIvol (mGy) MEDICAL HISTORY : Hypertension. Chronic obstructive pulmonary disease. SURGICAL HISTORY : None. ENCOUNTER: Initial ACUITY: 3 days PAIN SCALE: 6/10 LOCATION: Right flank TECHNIQUE: Volumetric scanning of the abdomen and pelvis was performed. Using automated exposure control and ad justment of the mA and/or kV according to patient size, radiation dose was kept as low as reasonably achievable to obtain optimal diagnostic quality images. DICOM format image data is available electro nically for review and comparison. FINDINGS: The lung bases are clear. The portion of liver and spleen identified are free of focal defects. The pancreas is unremarkable. There is a 2.2 cm low density right adrenal mass most likely adenoma but inconclusive on today's exam . Similar 1.6 cm mass is present on the left. There is mild perinephric stranding about both kidneys. There are no renal stones identified. There are no calcifications along the expected course of either the right or the left ureter. Moderate vascular calcifications are noted. Scattered diverticula are present in the pelvis. Radiation therapy seeds are present in the prostate. Degenerative changes are present in the lumbar spine and pelvis. CONCLUSION: 1. I do not see an etiology for the right flank pain. 2. Small low density presumed adrenal adenomas. Osei Brumfield MD FACR on January 11, 2017 at 12:37 Board Certified Radiologist. This report was verified electronically.
[2017-01-11 13:20] VITALS: BP 105/62; PULSE 72; RESP 18; O2SAT 99
[2017-01-11] MEDS ORDERED: ACETAMINOPHEN 325 MG TAB PO PRN (14:15)
[2017-01-11] MEDS ORDERED: MAGNESIUM HYDROXIDE SUSP 30 ML CUP PO PRN (14:15)
[2017-01-11] MEDS ORDERED: NALOXONE HCL 0.4 MG/ML AMP IV PUSH PRN (14:15)
[2017-01-11] MEDS ORDERED: LACTULOSE SYRUP 20 GM/30 ML CUP PO PRN (14:15)
[2017-01-11] MEDS ORDERED: ONDANSETRON HCL 4 MG/2 ML VIAL IVP PRN (14:15)
[2017-01-11] MEDS ORDERED: SENNOSIDES 8.6 MG TAB PO PRN (14:15)
[2017-01-11] MEDS ORDERED: BISACODYL 10 MG SUPP RECTAL PRN (14:15)
[2017-01-11] MEDS: SODIUM CHLOR 0.9% 1000 ML INJ 1,000 ML IV SCH (14:27)
[2017-01-11 14:59] VITALS: BP 114/69
[2017-01-11 16:00] VITALS: BP 104/74; PULSE 82; RESP 16; TEMP 97.1; O2SAT 100
--- NOTE | 2017-01-11 17:29 | HHI.HP ---
[facility] Dieudonne Ramos DO Admission Diagnosis Hyponatremia Diagnoses: (1) Hyponatremia Diagnosis: Principal Chief Complaint: Abdominal cramps Travel History International Travel<30 Days: No Contact w/Intl Traveler <30 Da: No Traveled to Known Affected Are: No History of Present Illness Written by Gary Sheldon, acting as scribe for Dr. Joseph on 01/11/17 at 17: 27. 66 year-old male with known history of hypertension, chronic obstructive pulmonary disease, hyperlipidemia, chronic bronchitis, thalassemia who presented to hospital because of abdominal cramping. Patient has been having increased flank pain and he had appointment scheduled with his urologist today, however he was having significant abdominal cramps the last 3 days so he came to the emergency department for evaluation. Patient had studies performed which did indicate hyponatremia. Patient states that someone told him that he was possibly dehydrated so he increased the amount of water he was drinking on a daily basis. Patient states that he is drinking 5-6, 16 ounce bottle water daily. He states that he is drinking so much water that his stomach would slush around when he moved. Counseled patient extensively on excessive water consumption and the effects of sodium. He does understand this time. Patient denied any other complaints. Denied any fever, chills, chest pain, shortness of breath, dyspnea, lower extremity edema. Review of Systems Gastrointestinal: COMPLAINS OF: Abdominal pain (abdominal cramping) Past Family Social History Past Medical History Hypertension Hyperlipidemia Chronic obstructive pulmonary disease Thalassemia Recurrent bronchitis Past Surgical History Cataract surgery Tonsillectomy Allergies: Coded Allergies: penicillin G (Unverified Allergy, Severe, Anaphylaxis, 01/11/17) Family History Father at 87 from prostate cancer and coronary artery disease, mother at age 87 with diabetes Social History Patient quit smoking 4 years ago, prior to that he smoked one pack a cigarettes a day since he was a teenager. Does drink 2 beers daily. Denies any illicit drugs Physical Exam Vital Signs Vital Signs Date Time Temp Pulse Resp B/P (MAP) Pulse Ox O2 Delivery O2 Flow Rate FiO2 01/11/17 16:00 97.1 82 16 104/74 (84) 100 01/11/17 14:59 67 18 114/69 (84) 99 01/11/17 13:20 72 18 105/62 (76) 99 Room Air 01/11/17 11:42 97.8 81 15 122/62 (82) 98 Physical Exam GENERAL: Well-developed, well-nourished, in no acute distress. alert and orientated HEENT: Head is normocephalic without any lesions or masses noted. Facial features are symmetric. Eyes: Pupils equal round reactive to light. Extraocular muscles are intact. Conjunctivae were clear. Oropharyngeal: Pharynx without any erythema edema. Tongue is midline without deviation. Buccal mucosa is moist without any masses or lesions NECK: Supple without any masses. Trachea midline no deviation. No JVD, no bruits are appreciated CARDIAC: Regular rhythm, regular rate. S1/S2 are heard. No murmurs gallops or rubs. LUNGS: Clear to auscultation bilaterally. No wheeze, rhonchi or rales. No use of accessory muscles on inspiration or expiration. ABDOMEN: Soft, nontender. Nondistended. Bowel sounds heard in all 4 quadrants. No organomegaly or masses. Negative rebound, negative guarding EXTREMITIES: No edema, pulses are equal bilaterally. No cyanosis or clubbing NEUROLOGY: Mood and affect appear appropriate. Cranial nerves II through XII grossly intact. Muscle strength 5/5 in upper and lower extremities bilaterally. Deep tendon reflexes are 2+ in upper and lower extremities bilaterally. Laboratory Laboratory Tests Test 01/11/17 11:50 01/11/17 12:00 01/11/17 14:45 Urine Collection Type CLEAN CATCH Urine Color YELLOW Urine Turbidity CLEAR Urine pH 6.0 Urine Specific [place] 1.016 Urine Protein NEG Urine Glucose (UA) NEG Urine Ketones NEG Urine Occult Blood NEG Urine Nitrite NEG Urine Bilirubin NEG Urine Leukocyte Esterase NEG Urine RBC 0-3 Urine Squamous Epithelial Cells 0-5 Microscopic Urinalysis Comment CULT NOT INDICATED Urine Collection Time 11:50 White Blood Count 12.0 Red Blood Count 5.31 Hemoglobin 10.6 Hematocrit 32.9 Mean Corpuscular Volume 61.9 Mean Corpuscular Hemoglobin 19.9 Mean Corpuscular Hemoglobin Concent 32.2 Red Cell Distribution Width 15.9 Platelet Count 265 Mean Platelet Volume 8.8 Neutrophils (%) (Auto) 83.9 Lymphocytes (%) (Auto) 8.6 Monocytes (%) (Auto) 5.9 Eosinophils (%) (Auto) 1.0 Basophils (%) (Auto) 0.6 Neutrophils # (Auto) 10.1 Lymphocytes # (Auto) 1.0 Monocytes # (Auto) 0.7 Eosinophils # (Auto) 0.1 Basophils # (Auto) 0.1 CBC Comment DIFF FINAL Differential Comment Tear Drop Cells 1+ Ovalocytes 2+ Acanthocytes 1+ Keratocytes 1+ Blood Urea Nitrogen 26 Creatinine 1.20 Random Glucose 93 Calcium Level 9.1 Sodium Level 123 Potassium Level 4.3 Chloride Level 86 Carbon Dioxide Level 27.6 Anion Gap 9 Estimat Glomerular Filtration Rate 61 Thyroid Stimulating Hormone 3rd Gen 0.957 Urine Random Sodium 25 Result Diagram: 01/11/17 1200 01/11/17 1200 Imaging Last Impressions Abdomen/Pelvis CT 01/11/17 1159 Signed Impressions: Service Date/Time: Wednesday, January 11, 2017 12:11 - CONCLUSION: 1. I do not see an etiology for the right flank pain. 2. Small low density presumed adrenal adenomas. Osei Brumfield MD FACR Caprini VTE Risk Assessment Caprini VTE Risk Assessment: Mod/High Risk (score >= 2) Caprini Risk Assessment Model Point Value = 1 Point Value = 2 Point Value = 3 Point Value = 5 Age 41-60 Minor surgery BMI > 25 kg/m2 Swollen legs Varicose veins or History of unexplained or recurrent spontaneous Oral contraceptives or hormone replacement Sepsis (< 1 month) Serious lung disease, including pneumonia (< 1 month) Abnormal pulmonary function Acute myocardial infarction Congestive heart failure (< 1 month) History of inflammatory bowel disease Medical patient at bed rest Age 61-74 Arthroscopic surgery Major open surgery (> 45 min) Laparoscopic surgery (> 45 min) Malignancy Confined to bed (> 72 hours) Immobilizing plaster cast Central venous access Age >= 75 History of VTE Family history of VTE Factor V Leiden Prothrombin [id number] Lupus anticoagulant Anticardiolipin antibodies Elevated serum homocysteine Heparin-induced thrombocytopenia Other congenital or acquired thrombophilia Stroke (< 1 month) Elective arthroplasty Hip, pelvis, or leg fracture Acute spinal cord injury (< 1 month) Prophylaxis Regimen Total Risk Factor Score Risk Level Prophylaxis Regimen 0-1 Low Early ambulation 2 Moderate Order ONE of the following: *Sequential Compression Device (SCD) *Heparin 5000 units SQ BID 3-4 Higher Order ONE of the following medications: *Heparin 5000 units SQ TID *Enoxaparin/Lovenox 40 mg SQ daily (WT < 150 kg, CrCl > 30 mL/min) *Enoxaparin/Lovenox 30 mg SQ daily (WT < 150 kg, CrCl > 10-29 mL/min) *Enoxaparin/Lovenox 30 mg SQ BID (WT < 150 kg, CrCl > 30 mL/min) AND/OR *Sequential Compression Device (SCD) 5 or more Highest Order ONE of the following medications: *Heparin 5000 units SQ TID (Preferred with Epidurals) *Enoxaparin/Lovenox 40 mg SQ daily (WT < 150 kg, CrCl > 30 mL/min) *Enoxaparin/Lovenox 30 mg SQ daily (WT < 150 kg, CrCl > 10-29 mL/min) *Enoxaparin/Lovenox 30 mg SQ BID (WT < 150 kg, CrCl > 30 mL/min) AND *Sequential Compression Device (SCD) Assessment and Plan Assessment and Plan 66 year-old male who presented because of abdominal muscle cramps Hyponatremia secondary to increased water consumption Patient does admit to drinking 5-6, 16 ounce bottle rodríguez daily which he has increased since his last admission We'll check serum osmolality, urine osmolality, urine sodium Patient counseled on excessive water consumption Recent chest x-ray does not indicate any acute abnormality, TSH is normal Hypertension Continue home medications DVT prevention Subcutaneous Lovenox This note was transcribed by rachna PETERSEN . I, Dr. Eleonora Joseph personally performed the history, physical exam, and medical decision making; and confirmed the accuracy of the information in the transcribed note. Authenticated by Dr. Eleonora Joseph on 01/11/17 at 17:27. Gary Sheldon Jan 11, 2017 17:29 Eleonora Joseph MD Jan 11, 2017 19:02
[2017-01-11 17:48] LABS: CHLAMYDIA PCR NOT DETECTED (NOT DETECT); NEISSERIA PCR NOT DETECTED (NOT DETECT)
[2017-01-11] MEDS ORDERED: ENOXAPARIN SODIUM 40 MG/0.4 ML SYRINGE SQ SCH (18:00)
[2017-01-11 20:00] VITALS: BP 158/95; PULSE 75; RESP 18; TEMP 98.5; O2SAT 100
[2017-01-11 20:10] VITALS: PULSE 62
[2017-01-11] MEDS ORDERED: MONTELUKAST SODIUM 10 MG TAB PO SCH (21:00)
[2017-01-11] MEDS ORDERED: SODIUM CHLORIDE 0.9% FLUSH 10 ML FLUSH IV FLUSH SCH (21:00)
[2017-01-11] MEDS ORDERED: DOCUSATE SODIUM 50 MG/SENNA 8.6 MG TAB PO SCH (21:00)
[2017-01-12] VITALS: BP 106/64; PULSE 70; RESP 16; TEMP 98.6; O2SAT 100
[2017-01-12] MEDS: SODIUM CHLOR 0.9% 1000 ML INJ 1,000 ML IV SCH (00:32)
[2017-01-12 04:00] VITALS: BP 123/84; PULSE 82; RESP 16; TEMP 98.6; O2SAT 98
[2017-01-12] MEDS ORDERED: BUDESONIDE-FORMOTEROL 80/4.5 MCG INHALER INH SCH (06:00)
[2017-01-12 06:35] LABS: AUTOMATED NEUTROPHIL # 4.9 TH/MM3 (1.8-7.7); BASOPHIL % 0.2 % (0.0-2.0); EOSINOPHIL # 0.1 TH/MM3 (0-0.4); EOSINOPHIL % 1.7 % (0.0-4.0); HEMATOCRIT 30.4 % (39.0-51.0); LYMPH % 14.5 % (9.0-44.0); LYMPHOCYTE # 0.9 TH/MM3 (1.0-4.8); MEAN CELL VOLUME 62.1 FL (80.0-100.0); MEAN CORPUSCULAR HEMOGLOBIN 18.9 PG (27.0-34.0); MEAN CORPUSCULAR HGB CONC 30.5 % (32.0-36.0); MONO % 9.8 % (0.0-8.0); NEUT % 73.8 % (16.0-70.0); PLATELET COUNT 238 TH/MM3 (150-450); RED BLOOD COUNT 4.89 MIL/MM3 (4.50-5.90); RED CELL DISTRIBUTION WIDTH 16.1 % (11.6-17.2); WHITE BLOOD COUNT 6.5 TH/MM3 (4.0-11.0)
[2017-01-12 06:59] LABS: BICARBONATE 27.4 MEQ/L (21.0-32.0); HEMO FLAGS AUTO DIFF; POTASSIUM 4.1 MEQ/L (3.5-5.1)
[2017-01-12 07:33] LABS: ACANTHOCYTES OCC (NORMAL); KERATOCYTES OCC (NORMAL); OVALOCYTES 1+ (NORMAL); PLATELET ESTIMATE SMEAR NORMAL (NORMAL); PLATELET MORPHOLOGY NORMAL (NORMAL); ROULEAUX PRESENT (NORMAL); SCAN/DIFF AUTO DIFF CONFIRMED; TEARDROP RBCS 1+ (NORMAL)
--- NOTE | 2017-01-12 07:36 | HHI.PR ---
Subjective Remarks Feels much better. Says he was able to sleep overnight. Eating well no nausea or vomiting. No diarrhea or constipation. Abdominal cramps improved significantly. He feels comfortable to go home today. No fever or chills. No muscle pain. No dizziness. He is walking without any problems. Objective Vitals Vital Signs Date Time Temp Pulse Resp B/P (MAP) Pulse Ox O2 Delivery O2 Flow Rate FiO2 01/12/17 04:00 98.6 82 16 123/84 (97) 98 01/12/17 00:00 98.6 70 16 106/64 (78) 100 01/11/17 20:10 62 01/11/17 20:00 98.5 75 18 158/95 (116) 100 01/11/17 16:00 97.1 82 16 104/74 (84) 100 01/11/17 14:59 67 18 114/69 (84) 99 01/11/17 13:20 72 18 105/62 (76) 99 Room Air 01/11/17 11:42 97.8 81 15 122/62 (82) 98 I/O 01/11/17 01/11/17 01/11/17 01/12/17 01/12/17 01/12/17 07:00 15:00 23:00 07:00 15:00 23:00 Intake Total 2120 ml 476 ml 1231 ml Output Total 200 ml Balance 1920 ml 476 ml 1231 ml Intake Oral 120 ml 240 ml IV Total 2000 ml 476 ml 991 ml Output Urine Total 200 ml Bladder Scan Volume Amount 0 ml # Voids 2 4 Result Diagram: 01/12/17 0500 01/12/17 0500 Imaging Last Impressions Abdomen/Pelvis CT 01/11/17 1159 Signed Impressions: Service Date/Time: Wednesday, January 11, 2017 12:11 - CONCLUSION: 1. I do not see an etiology for the right flank pain. 2. Small low density presumed adrenal adenomas. Osei Brumfield MD FACR Objective Remarks GENERAL: Well-developed, well-nourished, in no acute distress, alert and orientated CARDIAC: Regular rhythm, regular rate. S1/S2 are heard. No murmurs gallops or rubs. LUNGS: Clear to auscultation bilaterally. No wheeze, rhonchi or rales. No use of accessory muscles on inspiration or expiration. ABDOMEN: Soft, nontender. Nondistended. Bowel sounds heard in all 4 quadrants. No organomegaly or masses. Negative rebound, negative guarding EXTREMITIES: No edema, pulses are equal bilaterally. No cyanosis or clubbing NEUROLOGY: Mood and affect appear appropriate. Cranial nerves II through XII grossly intact. Muscle strength 5/5 in upper and lower extremities bilaterally. A/P Problem List: (1) Hyponatremia ICD Code: E87.1 - Hypo-osmolality and hyponatremia Assessment and Plan 66 year-old male who presented because of abdominal muscle cramps Hyponatremia secondary to increased water consumption. Na of 123 on admission. Received IVF 0.9 NS. Repeat Na of 131 Patient does admit to drinking 5-6, 16 ounce bottle rodríguez daily which he has increased since his last admission Serum osmolality, urine osmolality, urine sodium reviewed Patient counseled on excessive water consumption Recent chest x-ray does not indicate any acute abnormality, TSH is normal Hypertension Continue home medications DVT prevention Subcutaneous Lovenox Discussed with the patient,. nurse Discharge Planning Discharge home in stable condition to follow-up with PCP in [place] Diet discussed with the patient regular diet for a couple of days and then resume healthy heart diet Activity ad jsoe. as tolerated Medications per medications reconciliation Eleonora Joseph MD Jan 12, 2017 07:36
[2017-01-12 08:00] VITALS: BP 121/74; PULSE 67; RESP 16; TEMP 96.7; O2SAT 98
--- NOTE | 2017-01-12 08:01 | HHI.DCPOC ---
Discharge Care Plan Goals to Promote Your Health * To prevent worsening of your condition and complications * To maintain your health at the optimal level Directions to Meet Your Goals Take your medications as prescribed Follow your dietary instruction Follow activity as directed Keep your appointments as scheduled Take your immunizations and boosters as scheduled If your symptoms worsen call your PCP, if no PCP go to Urgent Care Center or Emergency Room Smoking is Dangerous to Your Health. Avoid second hand smoke Call the 24-hour hour crisis hotline for domestic abuse at Eleonora Joseph MD Jan 12, 2017 08:01
[2017-01-12] MEDS ORDERED: LISINOPRIL 20 MG TAB PO SCH (09:00)
[2017-01-12] MEDS ORDERED: CHLORTHALIDONE 50 MG TAB PO SCH (09:00)
== END 2017-01-12 09:28 | disposition home or self-care (01) ==
LOC: PHED 11:36 → PHEDA 14:02 → PH3B 15:07
PROVIDERS: ADMIT Hospitalist; ATTEND Hospitalist
DX: E87.1 Hypo-osmolality and hyponatremia (principal); D56.9 Thalassemia, unspecified; J42 Unspecified chronic bronchitis; E78.5 Hyperlipidemia, unspecified; I10 Essential (primary) hypertension
CPT/HCPCS: 74176; 80048; 81001; 83930; 83935; 84300; 84443; 85025; 87491; 87591; 96361; 96372; 96374; 96376; 99285; G0378; J1650; J1885; J7030

== ENCOUNTER 2017-01-21 12:24 | Emergency (ER) | payer OTHER ==
[~2017-01-21 12:24] MED LIST changes: -AZIT250T3 PO; -MEDR4PAK PO
[2017-01-21 12:37] VITALS: BP 118/80; PULSE 84; RESP 20; TEMP 98.1; O2SAT 96
[2017-01-21] MEDS ORDERED: IBUP-232 PO (12:45)
--- NOTE | 2017-01-21 13:34 | PD ---
HPI Chief Complaint: Back/ Neck Pain or Injury Time Seen by Provider: 13:19 Travel History International Travel<30 days: No Contact w/Intl Traveler<30days: No Traveled to known affect area: No History of Present Illness HPI 66-year-old male here for evaluation of his low back pain. He states that he has had this back pain for over a year and has seen chiropractors and multiple specialists for this. He says that he is concerned because today he had a severe episode of pain and would like to be evaluated. He said he had x-rays at [facility] Monday and is due to have an MRI this coming Monday. At this point he denies fever, chills, chest pain, shortness of breath, weakness , numbness, radiation of pain, tingling, saddle anesthesia, loos of bowel or bladder function, nights sweats, trauma. He denies a personal history of cancer. This morning he describes the pain as aching and 5-10 out of 10. He took Advil 600 mg 3 hours ago without relief. PFSH Past Medical History Asthma: Yes Cancer: No Cardiovascular Problems: Yes High Cholesterol: Yes COPD: Yes Diminished Hearing: No Endocrine: No Genitourinary: No Hypertension: Yes Immune Disorder: No Musculoskeletal: No Neurologic: No Psychiatric: No Reproductive: No Respiratory: Yes Immunizations Current: Yes Pneumonia: Yes Influenza Vaccination: No ?: Not Past Surgical History Eye Surgery: Yes (RIGHT CATARACT) Tonsillectomy: Yes Family History Family Hypercholesterolemia: Yes (FATHER) Social History Alcohol Use: Yes (occ) Tobacco Use: No (QUIT 2007) Substance Use: No Allergies-Medications (Allergen,Severity, Reaction): Coded Allergies: penicillin G (Unverified Allergy, Severe, Anaphylaxis, 01/21/17) Reported Meds & Prescriptions Reported Meds & Active Scripts Active Flexeril (Cyclobenzaprine HCl) 5 Mg Tab 5 Mg PO TID 5 Days Tramadol (Tramadol HCl) 50 Mg Tab 50 Mg PO Q8H PRN 3 Days Reported Ibuprofen 600 Mg Tab 600 Mg PO Q6H PRN Symbicort Inh (Budesonide/Formoterol Fumarate) 80-4.5 Mcg/Act Aero 2 Puff INH DAILY@0600 Singulair (Montelukast Sodium) 10 Mg Tab 10 Mg PO HS Chlorthalidone 50 Mg Tab 50 Mg PO DAILY Lisinopril 40 Mg Tab 40 Mg PO DAILY Review of Systems Except as stated in HPI: all other systems reviewed are Neg Physical Exam Narrative GENERAL: Well developed well nourished SKIN: Focused skin assessment warm/dry. HEAD: Atraumatic. Normocephalic. EYES: No scleral icterus. No injection or drainage. NECK: Trachea midline. No JVD. CARDIOVASCULAR: Regular rate and rhythm. No murmur appreciated. RESPIRATORY: No accessory muscle use. Clear to auscultation. Breath sounds equal bilaterally. GASTROINTESTINAL: Abdomen soft, non-tender, nondistended. Hepatic and splenic margins not palpable. MUSCULOSKELETAL: No obvious deformities. No clubbing. No cyanosis. No edema. No obvious muscle spasms BACK: No CVA tenderness. No rash. No point tenderness on palpation of the spine. Mild muscle spasms left lower lumbar region, no step-offs or crepitus NEUROLOGICAL: Awake and alert. No obvious cranial nerve deficits. Motor grossly within normal limits. Normal speech. PSYCHIATRIC: Appropriate mood and affect; insight and judgment normal. Data Data Last Documented VS Vital Signs Date Time Temp Pulse Resp B/P (MAP) Pulse Ox O2 Delivery O2 Flow Rate FiO2 01/21/17 12:37 98.1 84 20 118/80 (93) 96 MDM Medical Decision Making Medical Screen Exam Complete: Yes Emergency Medical Condition: Yes Differential Diagnosis Lumbar: Lumbago versus fracture versus muscle strain Narrative Course 66-year-old male here for evaluation of back pain. No red flags patient remained stable and in no apparent distress during evaluation. Patient has seen multiple specialists for this condition and has been given muscle relaxers and advised to take anti-inflammatories but has not had relief. He states that he would like something for pain and we had a discussion regarding the medication. Because he is having an MRI Monday, we'll give him a very short course of tramadol for his pain. Advised him of risk versus benefit and to be aware of side effects. If symptoms worsen or persist advised him to return to the emergency department. Diagnosis Primary Impression: Lumbago Qualified Codes: M54.5 - Low back pain; G89.29 - Other chronic pain Referrals: Orthopedist Primary Care Physician Additional Instructions: Perform light stretches of the lower back and legs, and alternate heat and ice packs. If you develop increased pain, weakness, fever, chills, or bowel or bladder issues, return to the ED for further treatment and evaluation. Follow up with your primary care physician in 2-3 days. Obtain MRI as described in visit today. Use extreme caution with medication you are being prescribed today. Scripts Cyclobenzaprine (Flexeril) 5 Mg Tab 5 MG PO TID for Muscle Spasm for 5 Days, #15 TAB 0 Refills Prov: Shawanda Prince 01/21/17 Tramadol (Tramadol) 50 Mg Tab 50 MG PO Q8H Y for PAIN for 3 Days, #9 TAB 0 Refills Prov: Jeyson Wooten MD 01/21/17 Disposition: 01 DISCHARGE HOME Condition: Stable Shawanda Prince Jan 21, 2017 13:34
[2017-01-21] MEDS ORDERED: TRAM50TA PO (13:35)
[2017-01-21] MEDS ORDERED: CYCL5TAB PO (13:45)
== END 2017-01-21 13:59 | disposition home or self-care (01) ==
LOC: PHED 12:24
DX: M54.5 Low back pain (principal); G89.29 Other chronic pain; I10 Essential (primary) hypertension; Z88.0 Allergy status to penicillin
CPT/HCPCS: 99284

== ENCOUNTER 2017-02-27 09:59 | Emergency (ER) | payer OTHER, MEDICARE ==
[~2017-02-27] VITALS: Ht 177.8 cm; Wt 81.2 kg
[~2017-02-27 09:59] MED LIST changes: -CHLOR50 PO; +CYCL5TAB PO; +LEVO750T3 PO; +PANT40TA3 PO; +TRAM50TA PO
[2017-02-27 10:04] VITALS: BP 100/77; PULSE 98; RESP 15; TEMP 98; O2SAT 97
[2017-02-27] MEDS ORDERED: MECL-62 PO (10:28)
[2017-02-27] MEDS ORDERED: ZOFR4TAB3 SL (10:28)
--- NOTE | 2017-02-27 10:29 | PD ---
HPI Chief Complaint: Dizziness Time Seen by Provider: 10:08 Travel History International Travel<30 days: No Contact w/Intl Traveler<30days: No Traveled to known affect area: No History of Present Illness HPI 66 years old male complains of dizziness. Patient states that he was admitted to [facility] February 20 and discharged February 22 4 acute duodenitis, hyponatremia, weight loss. Patient had upper GI endoscopy done which show gastritis and duodenitis. Patient was discharged home with prescription for Levaquin pantoprazole. Patient finished the last dosage of Levaquin this morning. Patient states that he had a short moment of dizziness yesterday morning. Patient states that that resolved completely. Patient states that he went to rehabilitation this morning and started having lightheadedness and almost passed out this morning. Patient states the dizziness is much better now. Patient denies any headache. Patient denies any visual change. Patient denies any neck pain. Patient denies any chest pain or shortness of breath. Patient denies abdominal pain. Patient denies any focal weakness or numbness of extremity. Patient denies any fever chills. Patient states that he has mild nausea with the dizziness however not now. Patient denies any vomiting or diarrhea. Patient denies any dysuria or frequency. Patient states that he has been eating well. Patient denies any tinnitus or hearing loss. PFSH Past Medical History Asthma: Yes Cancer: No Cardiovascular Problems: Yes High Cholesterol: Yes COPD: Yes Diminished Hearing: No Endocrine: No GERD: Yes Genitourinary: No Hypertension: Yes Immune Disorder: No Musculoskeletal: Yes (PT STATES NEW MUSCLE PROBLEMS IN BACK) Neurologic: No Psychiatric: No Reproductive: No Respiratory: Yes Immunizations Current: Yes Pneumonia: Yes Past Surgical History Eye Surgery: Yes (RIGHT CATARACT) Tonsillectomy: Yes Other Surgery: No Family History Family Hypercholesterolemia: Yes (FATHER) Social History Alcohol Use: Yes (COUPLE TIMES PER WEEK) Tobacco Use: No (QUIT 2007) Substance Use: No Allergies-Medications (Allergen,Severity, Reaction): Coded Allergies: penicillin G (Unverified Allergy, Severe, Anaphylaxis, 02/27/17) Reported Meds & Prescriptions Reported Meds & Active Scripts Active Pantoprazole (Pantoprazole Sodium) 40 Mg Tab 40 Mg PO BID Flexeril (Cyclobenzaprine HCl) 5 Mg Tab 5 Mg PO TID 5 Days Reported Symbicort Inh (Budesonide/Formoterol Fumarate) 80-4.5 Mcg/Act Aero 2 Puff INH DAILY@0600 Singulair (Montelukast Sodium) 10 Mg Tab 10 Mg PO HS Lisinopril 40 Mg Tab 40 Mg PO DAILY Review of Systems General / Constitutional: No: Fever Eyes: No: Visual changes HENT: Positive: Lightheadedness, No: Headaches Cardiovascular: No: Chest Pain or Discomfort Respiratory: No: Shortness of Breath Gastrointestinal: No: Abdominal Pain Genitourinary: No: Dysuria Musculoskeletal: No: Pain Skin: No Rash Neurologic: No: Weakness Psychiatric: No: Depression Endocrine: No: Polydipsia Hematologic/Lymphatic: No: Easy Bruising Physical Exam Narrative GENERAL: Well-nourished, well-developed patient. SKIN: Focused skin assessment warm/dry. HEAD: Normocephalic. EYES: No scleral icterus. No injection or drainage. TM: Clear. NECK: Supple, trachea midline. No JVD or lymphadenopathy. CARDIOVASCULAR: Regular rate and rhythm without murmurs, gallops, or rubs. RESPIRATORY: Breath sounds equal bilaterally. No accessory muscle use. GASTROINTESTINAL: Abdomen soft, non-tender, nondistended. MUSCULOSKELETAL: No cyanosis, or edema. BACK: Nontender without obvious deformity. No CVA tenderness. Neurologic exam normal. Data Data Last Documented VS Vital Signs Date Time Temp Pulse Resp B/P (MAP) Pulse Ox O2 Delivery O2 Flow Rate FiO2 02/27/17 10:04 98.0 98 15 100/77 (85) 97 Orders Orders Meclizine (Antivert) (02/27/17 10:30) Ondansetron Odt (Zofran Odt) (02/27/17 10:30) [facility] Medical Decision Making Medical Screen Exam Complete: Yes Emergency Medical Condition: Yes Differential Diagnosis Differential diagnosis including acute positional vertigo, electrolyte imbalance , dehydration, TIA, CVA. Narrative Course 66 years old male with lightheadedness. Meclizine 25 g by mouth. Zofran 4 mg ODT. Diagnosis Primary Impression: Vertigo Patient Instructions: General Instructions Additional Instructions: Take medication as needed. Follow-up with personal physician and your nose and throat specialist. Return if worse. Med/Other Pt SpecificInfo: Prescription(s) given Scripts Ondansetron Odt (Zofran Odt) 4 Mg Tab 4 MG SL Q6HR Y for Nausea/Vomiting, #10 TAB 0 Refills Prov: Jagdish Lam MD 02/27/17 Meclizine (Meclizine) 25 Mg Tab 25 MG PO TID Y for VERTIGO, #21 TAB 0 Refills Prov: Jagdish Lam MD 02/27/17 Disposition: 01 DISCHARGE HOME Condition: Stable Jagdish Lam MD Feb 27, 2017 10:29
[2017-02-27] MEDS ORDERED: MECLIZINE HCL 25 MG TAB PO ONE (10:30)
[2017-02-27] MEDS ORDERED: ONDANSETRON ODT 4 MG TAB PO ONE (10:30)
[2017-02-27 11:14] VITALS: BP 110/79
== END 2017-02-27 11:17 | disposition home or self-care (01) ==
LOC: PHED 09:59
DX: R42 Dizziness and giddiness (principal); E78.00 Pure hypercholesterolemia, unspecified; J44.9 Chronic obstructive pulmonary disease, unspecified; I10 Essential (primary) hypertension; Z88.0 Allergy status to penicillin
CPT/HCPCS: 99284